=== PATIENT | male | born 1995 | race Caucasian/White ===

== ENCOUNTER 2023-02-07 23:30 | Emergency (ER) | payer MEDICAID ==
[~2023-02-07] VITALS: Ht 175.3 cm; Wt 104.3 kg
[2023-02-08 00:05] VITALS: BP 137/86; PULSE 71; RESP 20; TEMP 98; O2SAT 98
--- NOTE | 2023-02-08 01:20 | NUR ---
Dr. Montague examining patient.
[2023-02-08] MEDS ORDERED: NACL 0.9% 1,000 ML IV ONE (01:45)
[2023-02-08 01:57] LABS: BASOPHILS # (AUTO) 0.1 K/uL (0.00-0.22); BASOPHILS % (AUTO) 0.8 % (0.0-2.0); EOSINOPHILS # (AUTO) 0.6 K/uL (0-0.4); EOSINOPHILS % (AUTO) 7.6 % (0.0-4.0); HEMATOCRIT 45.6 % (36-52); HEMOGLOBIN 15.6 g/dL (12.0-18.0); LYMPHOCYTES # (AUTO) 3.5 K/uL (2.0-11.5); LYMPHOCYTES % (AUTO) 44.6 % (20.5-51.1); MEAN CORPUSCULAR HEMOGLOBIN 29 pg (27-31); MEAN CORPUSCULAR HGB CONC 34 g/dL (33-37); MEAN CORPUSCULAR VOLUME 83.6 fL (80-94); MONOCYTES # (AUTO) 0.8 K/uL (0.8-1.0); MONOCYTES % (AUTO) 9.7 % (1.7-9.3); NEUTROPHILS # (AUTO) 2.9 K/uL (1.8-7.7); NEUTROPHILS % (AUTO) 37.3 % (42.2-75.2); PLATELET COUNT (AUTO) 194 K/uL (140-450); RED BLOOD CELL COUNT(AUTO) 5.45 MIL/uL (4.20-6.10); WHITE BLOOD COUNT (AUTO) 7.9 K/uL (4.8-10.8)
--- NOTE | 2023-02-08 02:00 | NUR ---
PT TAKEN TO CT
[2023-02-08 02:13] LABS: ALBUMIN 3.9 g/dL (3.4-5.0); ANION GAP 9.4 (8-16); CARBON DIOXIDE 30.3 mmol/L (21-32); CREATININE 1.1 mg/dL (0.6-1.3); POTASSIUM 3.7 mmol/L (3.5-5.1); TOTAL BILIRUBIN 0.4 mg/dL (0.0-1.0)
[2023-02-08] MEDS ORDERED: SULF-59 PO (06:30)
[2023-02-08] MEDS ORDERED: ACET-10509 PO (06:30)
[2023-02-08 07:16] VITALS: BP 137/86; PULSE 71; RESP 20; TEMP 98; O2SAT 98
--- NOTE | 2023-02-08 07:17 | NUR ---
Patient discharged with v/s stable. Written and verbal after care instructions given and explained. Patient alert, oriented and verbalized understanding of instructions. Ambulatory with steady gait. All questions addressed prior to discharge. ID band removed. Patient advised to follow up with PMD. Rx of TYLENOL, BACTRIM given. Patient educated on indication of medication including possible reaction and side effects. Opportunity to ask questions provided and answered.
== END 2023-02-08 07:17 | disposition home or self-care (01) ==
LOC: MED 23:30
DX: L03.311 Cellulitis of abdominal wall (principal); Z79.899 Other long term (current) drug therapy
CPT/HCPCS: 36415; 74177; 80053; 85025; 96360; 99285; J7030; Q9967

== ENCOUNTER 2024-03-07 20:34 | Emergency (ER) | payer MEDICAID ==
[~2024-03-07] VITALS: Ht 175.3 cm; Wt 102.1 kg
[~2024-03-07 20:34] MED LIST: ACET-10509 PO; SULF-59 PO
[2024-03-07 20:35] VITALS: BP 146/88; PULSE 67; RESP 16; TEMP 207; TEMP 97.2; O2SAT 99
[2024-03-07] MEDS ORDERED: CEPH-588 PO (21:42)
[2024-03-07] MEDS ORDERED: IBUP-2213 PO (21:42)
[2024-03-07] MEDS: KETOROLAC 30 MG/ML VIAL IM ONE (21:46)
[2024-03-07] MEDS: LIDOCAINE MPF 1% 10 MG/ML VIAL INJ ONE (21:58)
[2024-03-07] MEDS ORDERED: BACITRACIN OINT 500 UNITS/GM PKT TP ONE (22:58)
[2024-03-07] MEDS: BACITRACIN OINT 500 UNITS/GM PKT TP ONE (22:59)
== END 2024-03-07 23:24 | disposition home or self-care (01) ==
LOC: MED 20:34
DX: S61.511A Laceration without foreign body of right wrist, initial encounter (principal); E11.9 Type 2 diabetes mellitus without complications; Z79.1 Long term (current) use of non-steroidal anti-inflammatories (NSAID); Z79.899 Other long term (current) drug therapy; W25.XXXA Contact with sharp glass, initial encounter; Y93.89 Activity, other specified; Y92.89 Other specified places as the place of occurrence of the external cause; Y99.8 Other external cause status
CPT/HCPCS: 12002; 73090; 90471; 90715; 96372; 99284; J1885; J2001; Q0092